=== PATIENT | female | born 1985 | race African-American/Black ===

== ENCOUNTER 2019-07-03 12:17 | Emergency (ER) | payer MEDICAID, MEDICARE, OTHER ==
[~2019-07-03] VITALS: Ht 167.6 cm; Wt 90.7 kg
[2019-07-03] MEDS ORDERED: LORazepam 2MG/ML-1ML VIAL IV ONE (12:45)
[2019-07-03 13:32] LABS: Basophils # (auto) 0.1 uL; Eosinophils # (auto) 0.2 uL; Hemoglobin 12.6 g/dL (12.2-16.2); Lymphocytes # (auto) 1.9 uL
[2019-07-03 13:33] LABS: Basophils % (auto) 1.4 % (0.0-2.0); Eosinophils % (auto) 3.5 % (0.0-7.0); Hematocrit 38.3 % (36.0-46.0); Lymphocytes % (auto) 27.8 % (10.0-50.0); Mean Corpuscular Hemoglobin 27.1 pg (28.0-32.0); Mean Corpuscular Hgb Conc. 32.9 g/dL (32.0-36.0); Mean Corpuscular Volume 82.4 fL (80.0-100.0); Monocytes # (auto) 0.5 uL; Neutrophils % (auto) 59.3 % (37.0-80.0); Nucleated Red Blood Cells % 0.1 %; Platelet Count (auto) 224 10^3/uL (140-450); Red Blood Cells 4.65 10^6/uL (4.0-5.20); Red Cell Distribution Width 15.7 % (11.8-14.3); White Blood Cell 6.8 10^3/uL (4.4-10.8)
[2019-07-03 13:51] LABS: Albumin 3.4 g/dL (3.4-5.0); Anion Gap 6 (5-15); Blood Urea Nitrogen 11 mg/dL (7-18); Calcium 9.2 mg/dL (8.5-10.1); Carbon Dioxide 24 mmol/L (21-32); Chloride 110 mmol/L (98-107); Glucose 101 mg/dL (74-106); Potassium 3.5 mmol/L (3.5-5.1); Sodium 140 mmol/L (136-145)
[2019-07-03 13:55] LABS: Alanine Aminotransferase 11 U/L (13-56); Alkaline Phosphatase 58 U/L (45-117); Aspartate Aminotransferase 12 U/L (15-37); Bilirubin, Total 0.3 mg/dL (0.2-1.0); Blood Alcohol < 3.0 mg/dL (0-5); GFR African American 143 mL/min; GFR Non-African American 118 mL/min
[2019-07-03 15:40] LABS: Urine Pregnacy Test Negative (Negative)
[2019-07-03 15:50] LABS: Alcohol, Urine < 3.0 mg/dL (0-5); Amphetamine Screen, Urine NEGATIVE (NEGATIVE); Barbiturate Scree,Urine NEGATIVE (NEGATIVE); Benzodiazephine Screen, Urine NEGATIVE (NEGATIVE); Cannabinoid Screen, Urine NEGATIVE (NEGATIVE); Cocaine Screen, Urine NEGATIVE (NEGATIVE); Opiate Scree,Urine NEGATIVE (NEGATIVE); Phencyclidine Screen, Urine NEGATIVE (NEGATIVE)
[2019-07-03] MEDS ORDERED: NICOTINE 21MG/24 HR TOPICAL PATCH TD ONE (17:15)
[2019-07-04] MEDS ORDERED: OLANZapine 5 MG TAB PO ONE (08:15)
[2019-07-04 10:05] VITALS: BP 107/69
== END 2019-07-04 10:13 | disposition short-term general hospital (02) ==
LOC: EDBD 12:17 → ER 12:28
DX: R45.851 Suicidal ideations (principal); F41.9 Anxiety disorder, unspecified; Z59.0 Homelessness
CPT/HCPCS: 36415; 80053; 80307; 80320; 81025; 85025; 96374; 99285; J2060